=== PATIENT | male | born 1955 | race Caucasian/White ===

== ENCOUNTER 2018-12-21 14:08 | Emergency (ER) | payer MEDICAID ==
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
[2018-12-21 16:04] VITALS: BP 140/89; PULSE 102
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
== END 2018-12-21 16:03 | disposition home or self-care (01) ==
LOC: VM.ED 14:08
DX: S01.21XA Laceration without foreign body of nose, initial encounter (principal); S40.011A Contusion of right shoulder, initial encounter; E11.9 Type 2 diabetes mellitus without complications; J45.909 Unspecified asthma, uncomplicated; K21.9 Gastro-esophageal reflux disease without esophagitis; M19.90 Unspecified osteoarthritis, unspecified site; Z88.0 Allergy status to penicillin; Z79.82 Long term (current) use of aspirin; Z79.899 Other long term (current) drug therapy; Y09 Assault by unspecified means; W10.8XXA Fall (on) (from) other stairs and steps, initial encounter
CPT/HCPCS: 12011; 70450; 70486; 71046; 72125; 73030-RT; 99284-25

== ENCOUNTER 2020-05-24 21:21 | Emergency (ER) | payer MEDICAID ==
[2020-05-24 21:44] VITALS: BP 144/67; PULSE 81
--- NOTE | 2020-05-24 22:14 | EDM.PDOC ---
ED HPI GENERAL MEDICAL PROBLEM - General Chief Complaint: Respiratory Problem Stated Complaint: COUGH AND HEADACHE Time Seen by Provider: 05/24/20 21:40 Source of Information: Reports: Patient History Limitations: Reports: No Limitations - History of Present Illness INITIAL COMMENTS - FREE TEXT/NARRATIVE: Patient presents to the ER with ongoing cough x1 week dull sinus headache and scratchy sore throat that is worse in the morning when he first gets up patient states overall it is getting a lot better than it was he does want to come get checked out. He has no other symptoms at this time he denies any exposure to Covid states he has been doing well eating and drinking normally he has been taking some [id number] cough syrup Hughes's cough drops eating drinking fine along with taking some Tylenol on aspirin. He states his headache is just been over the forehead a dull side is the most its mood is a 2 and today it is 0 He has no other complaints at this time Duration: Day(s): Severity: Mild Improves with: Reports: Medication Worsens with: Reports: None Associated Symptoms: Reports: Cough, Headaches. Denies: Confusion, Chest Pain, cough w sputum, Diaphoresis, Fever/Chills, Loss of Appetite, Nausea/Vomiting, Seizure, Shortness of Breath, Weakness Treatments BLOWER MECHANIC: Reports: Acetaminophen, Aspirin, Other (see below) Other Treatments BLOWER MECHANIC: "Cough Medicine and Aspirin" Generalized Pain Score (Numeric/FACES): 2 - Related Data Allergies Allergy/AdvReac Type Severity Reaction Status Date / Time Penicillins Allergy Severe Anaphylactic Verified 05/24/20 21:36 Shock Home Meds: Home Meds Albuterol Sulfate [Albuterol Sulfate HFA] 1 - 2 puff INH Q4HR PRN 04/24/13 [History] Aspirin [Aspirin EC] 650 mg PO DAILY 04/24/13 [History] Cyanocobalamin (Vitamin B-12) [Vitamin B-12] 1,000 mcg IM Q30D 04/24/13 [History] Folic Acid 2 mg PO DAILY 04/24/13 [History] Omeprazole 20 mg PO DAILY 04/24/13 [History] K-Dur 20 meq PO BID 06/18/13 [History] Triamcinolone Acetonide [Triamcinolone Acetonide 0.1% Crm] 1 applic TOP BID PRN 09/11/13 [History] Amitriptyline [Elavil] 1 tab PO ACBED 12/16/13 [History] Past Medical History Respiratory History: Reports: Asthma Gastrointestinal History: Reports: GERD Other Gastrointestinal History: Weght loss, Abd. pain, Hx colon polyps Musculoskeletal History: Reports: Arthritis Neurological History: Reports: Brain Injury, Headaches, Chronic Psychiatric History: Reports: Developmental Delay, Mood Swings Endocrine/Metabolic History: Reports: Diabetes, Type II Other Endocrine/Metabolic History: diet controlled Hematologic History: Reports: Other (See Below) Other Hematologic History: hereditary hemochromatosis - Past Surgical History GI Surgical History: Reports: Cholecystectomy, Colonoscopy, EGD Oncologic Surgical History: Reports: None Social & Family History - Tobacco Use Tobacco Use Status *Q: Never Tobacco User ED ROS GENERAL - Review of Systems Review Of Systems: See Below Constitutional: Reports: No Symptoms. Denies: Fever, Chills, Malaise, Weakness, Fatigue, Night Sweats, Diaphoresis, Decreased Appetite HEENT: Reports: Nose Pain, Rhinitis, Sinus Problem, Throat Pain. Denies: Contact Lenses, Dental Pain, Eye Discharge, Hearing Loss, Nosebleed, Throat Swelling Respiratory: Reports: Cough. Denies: Shortness of Breath, Wheezing, Pleuritic Chest Pain, Sputum Cardiovascular: Reports: No Symptoms. Denies: Chest Pain, Blood Pressure Problem, Claudication, Dyspnea on Exertion, Lightheadedness, Orthopnea, Palpitations, PND, Syncope Endocrine: Reports: No Symptoms GI/Abdominal: Reports: No Symptoms : Reports: No Symptoms Musculoskeletal: Reports: No Symptoms Skin: Reports: No Symptoms Neurological: Reports: No Symptoms Psychiatric: Reports: No Symptoms Hematologic/Lymphatic: Reports: No Symptoms Immunologic: Reports: No Symptoms ED EXAM, GENERAL - Physical Exam Exam: See Below Exam Limited By: No Limitations General Appearance: Alert, WD/WN, No Apparent Distress, Other (Patient no acute distress alert and oriented x4 follows all commands answers all questions appropriately has normal speech logical thought process) Eye Exam: Bilateral Eye: EOMI, Normal Inspection Ears: Normal External Exam, Normal Canal, Hearing Grossly Normal, Normal TMs Nose: Normal Inspection, Normal Mucosa, No Blood, Other (No sinus tenderness to palpation over the ethmoid and maxillary) Throat/Mouth: Normal Inspection, Normal Lips, Normal Teeth, Normal Gums, Normal Oropharynx, Normal Voice, No Airway Compromise Head: Atraumatic, Normocephalic Neck: Normal Inspection, Supple, Non-Tender, Full Range of Motion Respiratory/Chest: No Respiratory Distress, Lungs Clear, Normal Breath Sounds, No Accessory Muscle Use, Chest Non-Tender Cardiovascular: Normal Peripheral Pulses, Regular Rate, Rhythm, No Edema, No Gallop, No JVD, No Murmur, No Rub GI/Abdominal: Normal Bowel Sounds, Soft, Non-Tender, No Organomegaly, No Distention. No: Guarding, Rigid, Rebound, Tender Extremities: Normal Inspection, Normal Range of Motion, Non-Tender, No Pedal Edema Neurological: Alert, Oriented, CN II-XII Intact, Normal Cognition, Normal Gait, No Motor/Sensory Deficits Psychiatric: Normal Affect, Normal Mood Skin Exam: Warm, Dry, Intact, Normal Color, No Rash Course - Vital Signs Text/Narrative:: Patient is okay with discharge disposition and continued at home medication states he will try to follow-up with his primary doctor in the next 24 to 48 hours and is okay with returning to the emergency room if anything changes Last Recorded V/S: Last Vital Signs Temp 35.6 C L 05/24/20 21:37 Pulse 81 05/24/20 21:37 Resp 16 05/24/20 21:37 BP 144/67 H 05/24/20 21:37 Pulse Ox 97 05/24/20 21:37 - Orders/Labs/Meds Labs: Laboratory Tests 05/24/20 Range/Units 21:36 SARS CoV-2 RNA Rapid MANNY Negative (NEGATIVE) Departure - Departure Time of Disposition: 22:15 Disposition: Home, Self-Care 01 Condition: Good Clinical Impression: Cough in adult patient, Pharyngitis - Discharge Information *PRESCRIPTION DRUG MONITORING PROGRAM REVIEWED*: No *COPY OF PRESCRIPTION DRUG MONITORING REPORT IN PATIENT KAIN: No Instructions: Cough, Adult, [id number] Referrals: Leticia Vickers DO [Primary Care Provider] - Forms: ED Department Discharge Additional Instructions: Return to the emergency room if anything changes or gets worse Follow-up with your primary care provider in the next 24 to 48 hours Make sure you drink plenty of fluids continue take your [id number] medicines as directed Sepsis Event Note (ED) - Evaluation Sepsis Screening Result: No Definite Risk - Focused Exam Vital Signs: Vital Signs Temp Pulse Resp BP Pulse Ox 05/24/20 21:37 35.6 C L 81 16 144/67 H 97 - Problem List & Annotations (1) Cough in adult patient SNOMED Code(s): 34481542 Code(s): R05 - COUGH Status: Acute Current Visit: Yes (2) Pharyngitis SNOMED Code(s): 667883492 Code(s): J02.9 - ACUTE PHARYNGITIS, UNSPECIFIED Status: Acute Current Visit: Yes
== END 2020-05-24 22:22 | disposition home or self-care (01) ==
LOC: VM.ED 21:21
DX: J02.9 Acute pharyngitis, unspecified (principal); J45.909 Unspecified asthma, uncomplicated; K21.9 Gastro-esophageal reflux disease without esophagitis; M19.90 Unspecified osteoarthritis, unspecified site; E11.9 Type 2 diabetes mellitus without complications; Z88.0 Allergy status to penicillin; Z79.82 Long term (current) use of aspirin; Z79.899 Other long term (current) drug therapy; Z20.822 Contact with and (suspected) exposure to COVID-19
CPT/HCPCS: 99283; 99284; U0002

== ENCOUNTER 2020-08-26 03:30 | Emergency (ER) | payer MEDICAID ==
[2020-08-26 04:01] VITALS: BP 125/74; PULSE 81
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
[2020-08-26 04:21] LABS: CHLORIDE,CL 104 mmol/L (98-107); SODIUM,NA 140 mmol/L (136-145)
[2020-08-26 04:23] LABS: ANION GAP 13.3 mmol/L (5-15)
[2020-08-26] MEDS ORDERED: Acetaminophen 500 MG Tab PO ONE (05:03)
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
== END 2020-08-26 05:59 | disposition home or self-care (01) ==
LOC: VM.ED 03:30
DX: S00.83XA Contusion of other part of head, initial encounter (principal); K21.9 Gastro-esophageal reflux disease without esophagitis; J45.909 Unspecified asthma, uncomplicated; E11.9 Type 2 diabetes mellitus without complications; M19.90 Unspecified osteoarthritis, unspecified site; Z79.82 Long term (current) use of aspirin; Z88.0 Allergy status to penicillin; Z79.899 Other long term (current) drug therapy; Y04.0XXA Assault by unarmed brawl or fight, initial encounter
CPT/HCPCS: 36415; 70450; 70486; 72125; 80048; 85025; 99284; 99284-25; A9270-GY

== ENCOUNTER 2020-08-28 11:25 | Emergency (ER) | payer MEDICAID ==
[2020-08-28 11:58] VITALS: BP 123/68; PULSE 80
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
[2020-08-28] MEDS ORDERED: Take Home: Clindamycin HCl 150 MG Cap, 6 Cap Pack PO ONE (13:10)
== END 2020-08-28 13:34 | disposition home or self-care (01) ==
LOC: VM.ED 11:25
DX: K04.7 Periapical abscess without sinus (principal); J45.909 Unspecified asthma, uncomplicated; K21.9 Gastro-esophageal reflux disease without esophagitis; M19.90 Unspecified osteoarthritis, unspecified site; E11.9 Type 2 diabetes mellitus without complications; Z79.899 Other long term (current) drug therapy; Z88.0 Allergy status to penicillin; Z79.82 Long term (current) use of aspirin
CPT/HCPCS: 70486; 99283; A9270

== ENCOUNTER 2020-08-30 05:19 | Emergency (ER) | payer MEDICAID ==
--- NOTE | 2020-08-30 05:56 | EDM.PDOC ---
ED HPI GENERAL MEDICAL PROBLEM - General Chief Complaint: Gastrointestinal Problem Stated Complaint: Rectal Pain / Discharge Time Seen by Provider: 08/30/20 05:30 Source of Information: Reports: Patient History Limitations: Reports: No Limitations - History of Present Illness INITIAL COMMENTS - FREE TEXT/NARRATIVE: tPatient states approximately about an hour or so ago he felt the urge to have a bowel movement and when he did he felt like acid was coming out of his butt . Patient states he has been fine all day eating and drinking normally went to bed with no issues and then this happened. He rated his pain about a 8 out of 10 then but has no pain now. He states he has had this problem maybe a year or so ago lasted 3 to 4 days. And it was due to increased stress and having a lot of acid buildup in his stomach. He has no other complaints at this time he had a TV dinner for supper and has been drinking water with no issues Onset: Sudden Duration: Hour(s): Quality: Reports: Burning Severity: Moderate Improves with: Reports: Other (time ) Context: Reports: Activity Associated Symptoms: Reports: No Other Symptoms - Related Data Allergies Allergy/AdvReac Type Severity Reaction Status Date / Time Penicillins Allergy Severe Anaphylactic Verified 08/30/20 05:28 Shock Home Meds: Home Meds Albuterol Sulfate [Albuterol Sulfate HFA] 1 - 2 puff INH Q4HR PRN 04/24/13 [History] Aspirin [Aspirin EC] 650 mg PO DAILY 04/24/13 [History] Cyanocobalamin (Vitamin B-12) [Vitamin B-12] 1,000 mcg IM Q30D 04/24/13 [Histo ry] Folic Acid 2 mg PO DAILY 04/24/13 [History] Omeprazole 20 mg PO DAILY 04/24/13 [History] K-Dur 20 meq PO BID 06/18/13 [History] Triamcinolone Acetonide [Triamcinolone Acetonide 0.1% Crm] 1 applic TOP BID PRN 09/11/13 [History] Amitriptyline [Elavil] 1 tab PO ACBED 12/16/13 [History] Past Medical History Respiratory History: Reports: Asthma Gastrointestinal History: Reports: GERD Other Gastrointestinal History: Weght loss, Abd. pain, Hx colon polyps Musculoskeletal History: Reports: Arthritis Neurological History: Reports: Brain Injury, Headaches, Chronic Psychiatric History: Reports: Developmental Delay, Mood Swings Endocrine/Metabolic History: Reports: Diabetes, Type II Other Endocrine/Metabolic History: diet controlled Hematologic History: Reports: Other (See Below) Other Hematologic History: hereditary hemochromatosis - Past Surgical History GI Surgical History: Reports: Cholecystectomy, Colonoscopy, EGD Oncologic Surgical History: Reports: None ED ROS GENERAL - Review of Systems Review Of Systems: See Below Constitutional: Reports: No Symptoms HEENT: Reports: No Symptoms Respiratory: Reports: No Symptoms Cardiovascular: Reports: No Symptoms Endocrine: Reports: No Symptoms GI/Abdominal: Reports: Other. Denies: Abdominal Pain, Anorexia, Black Stool, Bloody Stool, Constipation, Diarrhea, Decreased Appetite, Distension, Flatus, Hematemesis, Hematochezia, Melena, Mucous in Stool, Nausea, Stool Incontinence, Vomiting : Reports: No Symptoms Musculoskeletal: Reports: No Symptoms Skin: Reports: No Symptoms Neurological: Reports: No Symptoms. Denies: Confusion, Dizziness, Headache Psychiatric: Reports: No Symptoms Hematologic/Lymphatic: Reports: No Symptoms Immunologic: Reports: No Symptoms ED EXAM, GI/ABD - Physical Exam Exam: See Below Exam Limited By: No Limitations General Appearance: Alert, WD/WN, No Apparent Distress Eyes: Bilateral: Normal Appearance Throat/Mouth: Normal Inspection, Normal Lips, Normal Teeth, Normal Gums, Normal Oropharynx, Normal Voice, No Airway Compromise. No: Perioral Cyanosis Neck: Normal Inspection, Full Range of Motion Respiratory/Chest: No Respiratory Distress, Lungs Clear, Normal Breath Sounds, No Accessory Muscle Use, Chest Non-Tender Cardiovascular: Normal Peripheral Pulses, Regular Rate, Rhythm, No Edema, No Gallop, No JVD, No Murmur, No Rub GI/Abdominal Exam: Normal Bowel Sounds, Soft, Non-Tender, No Organomegaly, No Distention, No Abnormal Bruit. No: Tender (Male) Exam: Normal Inspection Rectal (Males) Exam: Normal Exam, Normal Rectal Tone, Heme - Stool, Other (It was noted upon the rectal exam that the patient had dried diarrhea in his underwear and down his gluteal fold patient also had diffuse mild erythema with mild bilateral gluteal candidiasis). No: Black Stool, Bloody Stool, Heme + Stool Back Exam: Full Range of Motion Extremities: Normal Inspection, Normal Range of Motion, Non-Tender, No Pedal Edema, Normal Capillary Refill Neurological: Alert, Oriented, CN II-XII Intact, Normal Cognition, Normal Gait Psychiatric: Normal Affect, Normal Mood Skin Exam: Warm, Dry, Intact, Normal Color, No Rash Course - Vital Signs Text/Narrative:: Patient had a negative Hemoccult there was no blood noted in the stool on physical exam as well I believe that the irritation may be secondary to the fecal matter stuck to the patient in regards to the candidiasis Patient was instructed to take a shower cleaning self when he returned home patient was given a pair of adult pull-ups here in the ER. Patient was instructed to use mild soap wash daily and to use a topical base ov [id number] antifungal for the next month twice a day patient was instructed to follow-up with primary care provider next 24 to 48 hours pt given calazime skin protectant paste in ER Departure - Departure Time of Disposition: 06:00 Disposition: Home, Self-Care 01 Condition: Good Clinical Impression: Candidiasis of anus - Discharge Information *PRESCRIPTION DRUG MONITORING PROGRAM REVIEWED*: No *COPY OF PRESCRIPTION DRUG MONITORING REPORT IN PATIENT KAIN: No Instructions: Skin Yeast Infection Referrals: Leticia Vickers DO [Primary Care Provider] - Forms: ED Department Discharge Additional Instructions: Make sure you use a mild soap such as Dove to clean the area. Follow-up with your primary care provider in the next 24 to 48 hours. Apply [id number] antifungal cream to the area twice a day for the next month You may also use the cream that you are given in the ER 2-3 times a day as needed If anything changes return to the emergency room - Problem List & Annotations (1) Candidiasis of anus SNOMED Code(s): 78248804 Code(s): B37.89 - OTHER SITES OF CANDIDIASIS Status: Acute Current Visit: Yes
[2020-08-30 06:07] VITALS: BP 133/63; PULSE 77
== END 2020-08-30 06:12 | disposition home or self-care (01) ==
LOC: VM.ED 05:19
DX: B37.49 Other urogenital candidiasis (principal); J45.909 Unspecified asthma, uncomplicated; K21.9 Gastro-esophageal reflux disease without esophagitis; M19.90 Unspecified osteoarthritis, unspecified site; E11.9 Type 2 diabetes mellitus without complications; Z79.899 Other long term (current) drug therapy; Z79.82 Long term (current) use of aspirin; Z88.0 Allergy status to penicillin
CPT/HCPCS: 99283

== ENCOUNTER 2020-09-17 12:29 | Emergency (ER) | payer MEDICAID ==
[2020-09-17] MEDS ORDERED: Sodium Chloride 0.9% 10 ML Syringe FLUSH PRN (12:57)
[2020-09-17] MEDS ORDERED: Lactated Ringers 1,000 ML IV ONE (13:09)
--- NOTE | 2020-09-17 13:22 | EDM.PDOC ---
ED HPI GENERAL MEDICAL PROBLEM - General Stated Complaint: KENDELL Time Seen by Provider: 09/17/20 12:40 Source of Information: Reports: Patient History Limitations: Reports: No Limitations - History of Present Illness INITIAL COMMENTS - FREE TEXT/NARRATIVE: Patient comes emergency department today with complaints of "severe" diarrhea that has been going on for the past 4 days. This patient was placed on clindamycin 300 mg p.o. 3 times daily for a questionable infection in his foot. He did not take it as prescribed. He took 1 tablet a day for about 5 days then he developed diarrhea that he reports is severe and unrelenting. He had 3 days of 1 watery stool per day. Today he had 2 loose stools that were not very large. He has not had any abdominal pain nausea or vomiting. No discomfort other than just prior to a bowel movement he has some cramping. He has had no black or bloody or tarry stools. He has not been traveling anywhere recently. He has discontinued the use of the clindamycin as the litigation manager felt that he did not need to continue it especially since he was not taking it as prescribed and his foot had improved. He has no fever no chills. He denies any surgeries in his abdomen in the past. He has not been exposed anyone else ill. He has not received his Covid vaccine. - Related Data Allergies Allergy/AdvReac Type Severity Reaction Status Date / Time Penicillins Allergy Severe Anaphylactic Verified 08/30/20 05:28 Shock Home Meds: Home Meds Albuterol Sulfate [Albuterol Sulfate HFA] 1 - 2 puff INH Q4HR PRN 04/24/13 [History] Aspirin [Aspirin EC] 650 mg PO DAILY 04/24/13 [History] Cyanocobalamin (Vitamin B-12) [Vitamin B-12] 1,000 mcg IM Q30D 04/24/13 [History] Folic Acid 2 mg PO DAILY 04/24/13 [History] Omeprazole 20 mg PO DAILY 04/24/13 [History] K-Dur 20 meq PO BID 06/18/13 [History] Triamcinolone Acetonide [Triamcinolone Acetonide 0.1% Crm] 1 applic TOP BID PRN 09/11/13 [History] Amitriptyline [Elavil] 1 tab PO ACBED 09/02/14 [History] Past Medical History Respiratory History: Reports: Asthma Gastrointestinal History: Reports: GERD Other Gastrointestinal History: Weght loss, Abd. pain, Hx colon polyps Musculoskeletal History: Reports: Arthritis Neurological History: Reports: Brain Injury, Headaches, Chronic Psychiatric History: Reports: Developmental Delay, Mood Swings Endocrine/Metabolic History: Reports: Diabetes, Type II Other Endocrine/Metabolic History: diet controlled Hematologic History: Reports: Other (See Below) Other Hematologic History: hereditary hemochromatosis - Past Surgical History GI Surgical History: Reports: Cholecystectomy, Colonoscopy, EGD Oncologic Surgical History: Reports: None ED ROS GENERAL - Review of Systems Review Of Systems: Comprehensive ROS is negative, except as noted in HPI. ED EXAM, GI/ABD - Physical Exam Exam: See Below Exam Limited By: No Limitations General Appearance: Alert, WD/WN, No Apparent Distress Eyes: Bilateral: EOMI Ears: Normal External Exam Nose: Normal Inspection, Normal Mucosa, No Blood Throat/Mouth: Normal Inspection Head: Atraumatic, Normocephalic Neck: Normal Inspection, Supple, Non-Tender Respiratory/Chest: No Respiratory Distress, Lungs Clear, Normal Breath Sounds, No Accessory Muscle Use, Chest Non-Tender Cardiovascular: Normal Peripheral Pulses, Regular Rate, Rhythm GI/Abdominal Exam: Normal Bowel Sounds, Soft, Non-Tender, No Distention, Pelvis Stable (Male) Exam: Deferred Rectal (Males) Exam: Deferred Back Exam: Normal Inspection, Full Range of Motion Extremities: Normal Inspection, Normal Range of Motion, Non-Tender, No Pedal Edema, Normal Capillary Refill Neurological: Alert, Oriented, No Motor/Sensory Deficits Psychiatric: Normal Affect, Normal Mood Skin Exam: Warm, Dry, Intact, Normal Color Lymphatic: No Adenopathy Course - Orders/Labs/Meds Orders: Active Orders 24 hr Category Date Time Status CLOSTRIDIUM DIFFICILE TOX RFLX [MREF] Stat Lab 09/17/20 12:57 Ordered STOOL CULTURE [MREF] Stat Lab 09/17/20 14:06 Ordered Sodium Chloride 0.9% [Saline Flush] Med 09/17/20 12:57 Active 10 ml FLUSH ASDIRECTED PRN Isolation [COMM] Stat Oth 09/17/20 12:58 Ordered Peripheral IV Insertion Adult [OM.PC] Stat Oth 09/17/20 12:57 Ordered Medication Orders Sodium Chloride (Sodium Chloride 0.9% 10 Ml Syringe) 10 ml FLUSH ASDIRECTED PRN PRN Reason: Keep Vein Open Labs: Laboratory Tests 09/17/20 09/17/20 09/17/20 Range/Units 13:10 13:10 13:10 WBC 8.3 (4.0-10.0) x10^3/uL RBC 3.78 L (4.5-6.0) x10^6/uL Hgb 13.1 L (14.0-18.0) g/dL Hct 36.6 L (40.0-52.0) % MCV 96.8 H D (78.0-93.0) fL MCH 34.7 H (26.0-32.0) pg MCHC 35.8 (32.0-36.0) g/dL RDW Coeff of Smita 17.4 H (10.0-15.0) % Plt Count 196 (130-400) x10^3/uL Add Manual Diff Yes Neutrophils % (Manual) 82 H (50-80) % Band Neutrophils % 1 (0-6) % Lymphocytes % (Manual) 9 L (25-50) % Monocytes % (Manual) 4 (2-11) % Eosinophils % (Manual) 4 (0-4) % Platelet Estimate Adequate Anisocytosis 1+ slight H Macrocytosis 2+ moderate H Sodium 145 (136-145) mmol/L Potassium 3.3 L (3.5-5.1) mmol/L Chloride 107 (98-107) mmol/L Carbon Dioxide 24 (21-32) mmol/L Anion Gap 17.3 H (5-15) mmol/L BUN 11 (7-18) mg/dL Creatinine 1.0 (0.70-1.30) mg/dL Est Cr Clr Drug Dosing TNP Estimated GFR (MDRD) > 60 Glucose 113 H (70-99) mg/dL Calcium 8.5 (8.5-10.1) mg/dL Corrected Calcium 8.7 (8.5-10.1) mg/dL Magnesium 2.4 (1.8-2.4) mg/dL Total Bilirubin 2.9 H (0.2-1.0) mg/dL AST 25 (15-37) U/L ALT 31 (16-63) U/L Alkaline Phosphatase 65 (46-116) U/L Total Protein 6.7 (6.4-8.2) g/dL Albumin 3.8 (3.4-5.0) g/dL Globulin 2.9 Albumin/Globulin Ratio 1.31 Lipase 57 L (73-393) U/L Meds: Medications Generic Name Dose Route Start Last Admin Trade Name Dirk PRN Reason Stop Dose Admin Sodium Chloride 10 ml 09/17/20 12:57 Sodium Chloride 0.9% 10 Ml Syringe FLUSH ASDIRECTED PRN Keep Vein Open Discontinued Medications Generic Name Dose Route Start Last Admin Trade Name Freten PRN Reason Stop Dose Admin Lactated Ringer's 1,000 mls @ 999 mls/hr 09/17/20 13:09 Ringers, Lactated IV 09/17/20 14:09 ONETIME ONE Potassium Chloride 40 meq 09/17/20 14:10 09/17/20 14:15 Potassium Chloride 20 Meq Tab.Er PO 09/17/20 14:11 40 meq ONETIME ONE Administration - Re-Assessments/Exams Free Text/Narrative Re-Assessment/Exam: IV was established labs are drawn. 1 L LR wide open. Covid screen negative. Laboratory evaluation with a WBC of 8.3, hemoglobin 13.1 platelet 196. CMP with a sodium 145, potassium 3.3, creatinine 1.0 BUN 11 mild elevation of the T bili at 2.9 but the rest of his liver enzymes are negative. Lipase 57 Magnesium 2.4. Patient's laboratory evaluation is rather unremarkable. He has not complained of any nausea or vomiting he has not had any diarrhea in the emergency department. He has really not had a lot of diarrhea either. He has had 1 diarrheal stool for 3 days and then 2 loose stools today. This could be related to the recent antibiotic dosing of the clindamycin. We will have him collect a stool sample at home to ensure that he does not have C. difficile but his presentation does not really appear to be as such with multiple loose watery foul smelling stools. We will have symptomatic treatment at this time and have him bring in a stool sample and will follow accordingly. Discharge instructions as below were explained to the patient. He is comfortable with this plan and his questions answered. Departure - Departure Time of Disposition: 14:03 Disposition: Home, Self-Care 01 Clinical Impression: Diarrhea Qualifiers: Diarrhea type: unspecified type Qualified Code(s): R19.7 - Diarrhea, unspecified - Discharge Information Instructions: Food Choices to Help Relieve Diarrhea, Adult, Diarrhea, Adult, [id number], Mel[place] Diet Referrals: Leticia Vickers, [Primary Care Provider] - Additional Instructions: Make sure and drink plenty of fluids especially electrolyte containing material like Gatorade or Powerade or other like substance over the next few days. No dairy products until symptom free for 48hrs. EXCEPT yogurt with live cultures will actually help with the diarrhea. Simple diet. Nothing fatty spicy or rich until symptoms free. Bring in stool sample when collected to the hospital within 24 hours of the collection. Make sure you are not taking the Clindamycin anymore as previously instructed. Make sure and eat a banana a day to help with your potassium. Return to the ED if new or worsening symptoms. Follow up with PCP in the next 4-6 days if not improving sooner if worse. - My Orders Last 24 Hours: My Active Orders 09/17/20 12:57 CLOSTRIDIUM DIFFICILE TOX RFLX [MREF] Stat Sodium Chloride 0.9% [Saline Flush] 10 ml FLUSH ASDIRECTED PRN Peripheral IV Insertion Adult [OM.PC] Stat 09/17/20 12:58 Isolation [COMM] Stat 09/17/20 14:06 STOOL CULTURE [MREF] Stat - Assessment/Plan Last 24 Hours: My Active Orders 09/17/20 12:57 CLOSTRIDIUM DIFFICILE TOX RFLX [MREF] Stat Sodium Chloride 0.9% [Saline Flush] 10 ml FLUSH ASDIRECTED PRN Peripheral IV Insertion Adult [OM.PC] Stat 09/17/20 12:58 Isolation [COMM] Stat 09/17/20 14:06 STOOL CULTURE [MREF] Stat
[2020-09-17 13:35] LABS: CHLORIDE,CL 107 mmol/L (98-107); SODIUM,NA 145 mmol/L (136-145)
[2020-09-17 13:52] LABS: ANION GAP 17.3 mmol/L (5-15)
[2020-09-17] MEDS ORDERED: Potassium Chloride 20 MEQ Tab.ER PO ONE (14:10)
[2020-09-17 18:43] VITALS: BP 144/89; PULSE 84
== END 2020-09-17 14:20 | disposition home or self-care (01) ==
LOC: VM.ED 12:29
DX: R19.7 Diarrhea, unspecified (principal); K21.9 Gastro-esophageal reflux disease without esophagitis; M19.90 Unspecified osteoarthritis, unspecified site; J45.909 Unspecified asthma, uncomplicated; E11.9 Type 2 diabetes mellitus without complications; Z88.0 Allergy status to penicillin; Z79.82 Long term (current) use of aspirin; Z79.899 Other long term (current) drug therapy
CPT/HCPCS: 36415; 80053; 83690; 83735; 85025; 99284; A9270-GY; J7120

== ENCOUNTER 2020-09-19 13:12 | Emergency (ER) | payer MEDICAID ==
--- NOTE | 2020-09-19 13:44 | EDM.PDOC ---
ED HPI GENERAL MEDICAL PROBLEM - General Stated Complaint: diarrhea Time Seen by Provider: 09/19/20 13:35 Source of Information: Reports: Patient History Limitations: Reports: No Limitations - History of Present Illness INITIAL COMMENTS - FREE TEXT/NARRATIVE: Patient comes emergency department today from home with continued complaints of diarrhea. This patient was seen on Sunday09-17-20 by myself for a 3 to 4-day history of 1 loose stool a day. He had laboratory evaluation at that time which was rather unremarkable with a chronic elevated T bili. He was given IV fluids. He was told to bring in a stool sample for evaluation of his diarrhea. He has not done so although he had 2-3 loose stools yesterday. He had 4 very watery diarrheal stools today to the point where he was unable to control it. He was on a very short course of clindamycin just prior to the development of his diarrhea. He was supposed to take 300 mg 3 times daily although he took 1 tablet a day for just 1 or 2 days and then discontinued it because his kettle firer told him he did not need it any longer. Today he returns the emergency department because he has continued diarrhea. He had 4 bouts of diarrhea today. He has some abdominal cramping when he has a diarrheal stool. He otherwise has no abdominal pain. He has had no nausea no vomiting. No fever no chills. No weakness dizziness lightheadedness syncope. No paresthesias. No chest pain no shortness of breath or difficulty breathing. No pain with urination difficulty urinating hematuria. His stools are very watery. No iam blood. The patient wasn't sure what he has been eating the past few days. He has been drinking water and doing well with that. This patient has had a gallbladder removal in the past. He had pancreatitis due to common bile duct stone. Hyperglycemia. 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 He relates that he isn't able to get to the bathroom quick enough before he is incontinent of diarrhea stools. - Related Data Allergies Allergy/AdvReac Type Severity Reaction Status Date / Time Penicillins Allergy Severe Anaphylactic Verified 09/19/20 13:45 Shock Home Meds: Home Meds Albuterol Sulfate [Albuterol Sulfate HFA] 1 - 2 puff INH Q4HR PRN 04/24/13 [History] Aspirin [Aspirin EC] 650 mg PO DAILY 04/24/13 [History] Cyanocobalamin (Vitamin B-12) [Vitamin B-12] 1,000 mcg IM Q30D 04/24/13 [History] Folic Acid 2 mg PO DAILY 04/24/13 [History] Omeprazole 20 mg PO DAILY 04/24/13 [History] K-Dur 20 meq PO BID 06/18/13 [History] Triamcinolone Acetonide [Triamcinolone Acetonide 0.1% Crm] 1 applic TOP BID PRN 09/11/13 [History] Amitriptyline [Elavil] 1 tab PO ACBED 12/16/13 [History] Past Medical History Respiratory History: Reports: Asthma Gastrointestinal History: Reports: GERD Other Gastrointestinal History: Weght loss, Abd. pain, Hx colon polyps Musculoskeletal History: Reports: Arthritis Neurological History: Reports: Brain Injury, Headaches, Chronic Psychiatric History: Reports: Developmental Delay, Mood Swings Endocrine/Metabolic History: Reports: Diabetes, Type II Other Endocrine/Metabolic History: diet controlled Hematologic History: Reports: Other (See Below) Other Hematologic History: hereditary hemochromatosis - Infectious Disease History Infectious Disease History: Reports: None - Past Surgical History GI Surgical History: Reports: Cholecystectomy, Colonoscopy, EGD Oncologic Surgical History: Reports: None ED ROS GENERAL - Review of Systems Review Of Systems: Comprehensive ROS is negative, except as noted in HPI. ED EXAM, GI/ABD - Physical Exam Exam: See Below Text/Narrative:: He is alert appropriate and in poor hygiene. He really does not share much information and seems like he struggles with understanding communication. Exam Limited By: No Limitations General Appearance: Alert, WD/WN, No Apparent Distress Respiratory/Chest: No Respiratory Distress, Lungs Clear, Normal Breath Sounds, Chest Non-Tender Cardiovascular: Normal Peripheral Pulses, Regular Rate, Rhythm GI/Abdominal Exam: Normal Bowel Sounds, Soft, Non-Tender, No Organomegaly, No Distention (Male) Exam: Deferred Rectal (Males) Exam: Deferred Back Exam: Normal Inspection, Full Range of Motion Extremities: Normal Inspection, Normal Range of Motion, Normal Capillary Refill Neurological: Alert, Oriented, Normal Cognition, No Motor/Sensory Deficits Psychiatric: Normal Affect, Normal Mood Skin Exam: Warm, Dry, Intact, Normal Color Course - Orders/Labs/Meds Orders: Active Orders 24 hr Category Date Time Status ETHANOL BLOOD MEDICAL [CHEM] Stat Lab 09/19/20 14:20 Ordered Labs: Laboratory Tests 09/19/20 09/19/20 09/19/20 Range/Units 13:47 13:47 13:47 WBC 9.6 (4.0-10.0) x10^3/uL RBC 4.05 L (4.5-6.0) x10^6/uL Hgb 14.1 (14.0-18.0) g/dL Hct 38.9 L (40.0-52.0) % MCV 96.0 H (78.0-93.0) fL MCH 34.8 H (26.0-32.0) pg MCHC 36.2 H (32.0-36.0) g/dL RDW Coeff of Smita 17.1 H (10.0-15.0) % Plt Count 209 (130-400) x10^3/uL Neut % (Auto) 83.7 H (50.0-80.0) % Lymph % (Auto) 5.5 L (25.0-50.0) % [place] % (Auto) 8.8 (2.0-11.0) % Eos % (Auto) 1.7 (0.0-4.0) % Baso % (Auto) 0.3 (0.2-1.2) % Sodium 144 (136-145) mmol/L Potassium 3.6 (3.5-5.1) mmol/L Chloride 106 (98-107) mmol/L Carbon Dioxide 23 (21-32) mmol/L Anion Gap 18.6 H (5-15) mmol/L BUN 15 (7-18) mg/dL Creatinine 1.0 (0.70-1.30) mg/dL Est Cr Clr Drug Dosing TNP Estimated GFR (MDRD) > 60 Glucose 126 H (70-99) mg/dL Lactic Acid 0.9 (0.4-2.0) mmol/L Calcium 9.0 (8.5-10.1) mg/dL Corrected Calcium 8.9 (8.5-10.1) mg/dL Magnesium 2.1 (1.8-2.4) mg/dL Total Bilirubin 4.6 H (0.2-1.0) mg/dL AST 24 (15-37) U/L ALT 26 (16-63) U/L Alkaline Phosphatase 64 (46-116) U/L C-Reactive Protein 0.7 (<=0.9) mg/dL Total Protein 7.0 (6.4-8.2) g/dL Albumin 4.1 (3.4-5.0) g/dL Globulin 2.9 Albumin/Globulin Ratio 1.41 Lipase 61 L (73-393) U/L SARS CoV-2 RNA Rapid MANNY (NEGATIVE) 09/19/20 Range/Units 13:48 WBC (4.0-10.0) x10^3/uL RBC (4.5-6.0) x10^6/uL Hgb (14.0-18.0) g/dL Hct (40.0-52.0) % MCV (78.0-93.0) fL MCH (26.0-32.0) pg MCHC (32.0-36.0) g/dL RDW Coeff of Smita (10.0-15.0) % Plt Count (130-400) x10^3/uL Neut % (Auto) (50.0-80.0) % Lymph % (Auto) (25.0-50.0) % [place] % (Auto) (2.0-11.0) % Eos % (Auto) (0.0-4.0) % Baso % (Auto) (0.2-1.2) % Sodium (136-145) mmol/L Potassium (3.5-5.1) mmol/L Chloride (98-107) mmol/L Carbon Dioxide (21-32) mmol/L Anion Gap (5-15) mmol/L BUN (7-18) mg/dL Creatinine (0.70-1.30) mg/dL Est Cr Clr Drug Dosing Estimated GFR (MDRD) Glucose (70-99) mg/dL Lactic Acid (0.4-2.0) mmol/L Calcium (8.5-10.1) mg/dL Corrected Calcium (8.5-10.1) mg/dL Magnesium (1.8-2.4) mg/dL Total Bilirubin (0.2-1.0) mg/dL AST (15-37) U/L ALT (16-63) U/L Alkaline Phosphatase (46-116) U/L C-Reactive Protein (<=0.9) mg/dL Total Protein (6.4-8.2) g/dL Albumin (3.4-5.0) g/dL Globulin Albumin/Globulin Ratio Lipase (73-393) U/L SARS CoV-2 RNA Rapid MANNY Negative (NEGATIVE) - Re-Assessments/Exams Free Text/Narrative Re-Assessment/Exam: 09/19/20 14:07 We will recheck the patients labs again today. It is difficult to determine if the patient needs treatment for infectious colitis as he has not brought in a stool sample. He was on clindamycin for just a few days but only was taking 1 tablet a day so unlikely to cause C Diff. Labs were redrawn. While we were waiting for the labs the patient stated that he just wants to go home and doesn't want to wait for results. I informed him of the risk of not waiting for the labs such as he could of dehdyration acute kidney injury or sepsis. He understands this is alert and appropriate and wants to leave AMA with the understanding of the risk. I did inform him to be seen in the clinic and to bring in a stool sample with his next stool. Also to try some OTC immodium for the time being with his concerns of urge incontinence with diarrhea. I reiterated the importance of him returning a stool sample. We did try to get him the collection stuff once again although he stated that he had some at home already. He is unable to give a stool sample while in the ED> 09/19/20 14:29 Departure - Departure Time of Disposition: 14:24 Disposition: Against Medical Advice 07 Clinical Impression: Left against medical advice Diarrhea Qualifiers: Diarrhea type: unspecified type Qualified Code(s): R19.7 - Diarrhea, unspecified - Discharge Information Forms: Refusal of Care AMA - My Orders Last 24 Hours: My Active Orders 09/19/20 14:20 ETHANOL BLOOD MEDICAL [CHEM] Stat - Assessment/Plan Last 24 Hours: My Active Orders 09/19/20 14:20 ETHANOL BLOOD MEDICAL [CHEM] Stat
[2020-09-19 14:12] LABS: CHLORIDE,CL 106 mmol/L (98-107); SODIUM,NA 144 mmol/L (136-145)
[2020-09-19 14:16] LABS: ANION GAP 18.6 mmol/L (5-15)
[2020-09-19 15:35] VITALS: BP 103/64; PULSE 88
== END 2020-09-19 14:24 | disposition left against medical advice (07) ==
LOC: VM.ED 13:12 → SUPCPDRO 13:12 → VM.ED 14:24
DX: R19.7 Diarrhea, unspecified (principal); K21.9 Gastro-esophageal reflux disease without esophagitis; E11.9 Type 2 diabetes mellitus without complications; Z88.0 Allergy status to penicillin; Z79.82 Long term (current) use of aspirin; Z79.899 Other long term (current) drug therapy; Z20.822 Contact with and (suspected) exposure to COVID-19; Z53.8 Procedure and treatment not carried out for other reasons
CPT/HCPCS: 36415; 80053; 80307; 83605; 83690; 83735; 85025; 86140; 99284; U0002

== ENCOUNTER 2021-08-01 09:00 | Day surgery (SDC) | payer MEDICARE, MEDICAID ==
[~2021-08-01 09:00] MED LIST: Lactated Ringers 1,000 ML IV SCH
[2021-08-01] MEDS ORDERED: Propofol 200 MG/20 ML SDV ONE ×2 (09:32→10:56)
[2021-08-01] MEDS ORDERED: fentaNYL 100 MCG/2 ML SDV ONE (09:32)
[2021-08-01 11:26] VITALS: BP 95/64; PULSE 67
== END 2021-08-01 11:55 | disposition home or self-care (01) ==
LOC: VM.SDS 09:00
PROVIDERS: ATTEND Surgery
DX: Z12.11 Encounter for screening for malignant neoplasm of colon (principal); K21.9 Gastro-esophageal reflux disease without esophagitis; E55.9 Vitamin D deficiency, unspecified; E53.8 Deficiency of other specified B group vitamins; J45.20 Mild intermittent asthma, uncomplicated; F41.1 Generalized anxiety disorder; G30.1 Alzheimer's disease with late onset; F02.81 Dementia in other diseases classified elsewhere, unspecified severity, with behavioral disturbance; D58.0 Hereditary spherocytosis; D63.8 Anemia in other chronic diseases classified elsewhere; E66.9 Obesity, unspecified; M10.9 Gout, unspecified; Z88.0 Allergy status to penicillin; Z79.82 Long term (current) use of aspirin; Z79.899 Other long term (current) drug therapy; Z68.28 Body mass index [BMI] 28.0-28.9, adult; Z86.010 Personal history of colon polyps; Z87.891 Personal history of nicotine dependence
CPT/HCPCS: 00811; J2704; J3010; J7120

== ENCOUNTER 2023-03-11 18:39 | Emergency (ER) | payer MEDICARE, MEDICAID ==
[2023-03-11 19:13] LABS: HEMATOCRIT 34.7 % (40.0-52.0); HEMOGLOBIN 12.2 g/dL (14.0-18.0); MEAN CORPUSCULAR HEMOGLOBIN 32.3 pg (26.0-32.0); MEAN CORPUSCULAR HGB CONC 35.2 g/dL (32.0-36.0); MEAN CORPUSCULAR VOLUME 91.8 fL (78.0-93.0); PLATELET COUNT,PLT 168 x10^3/uL (130-400); RED BLOOD CELL COUNT 3.78 x10^6/uL (4.5-6.0); WHITE BLOOD CELL COUNT,WBC 9.7 x10^3/uL (4.0-10.0)
[2023-03-11 19:29] LABS: BAND PERCENT MAN 1 % (0-6); BASOPHILS ABSOLUTE MAN 0.1 x10^3/uL (0.0-0.2); BASOPHILS PERCENT MAN 1 % (0-1); EOSINOPHILS ABSOLUTE MAN 0.6 x10^3/uL (0.0-0.5); EOSINOPHILS PERCENT MAN 6 % (0-4); LYMPHOCYTES ABSOLUTE MAN 1.9 x10^3/uL (1.0-4.8); LYMPHOCYTES PERCENT MAN 13 % (25-50); MONOCYTES ABSOLUTE MAN 0.6 x10^3/uL (0.0-0.8); MONOCYTES PERCENT MAN 6 % (2-11); NEUTROPHILS ABSOLUTE MAN 6.5 x10^3/uL (1.8-7.7); NRBC MANUAL 2 /100WBC (0-5); PLATELET COUNT ESTIMATE ADEQUATE; POLYCHROMASIA 1+ SLIGHT; SEG NEUTROPHILS PERCENT MAN 66 % (50-80)
[2023-03-11 19:31] LABS: CORONAVIRUS COVID-19 NAA NEGATIVE (NEGATIVE); INFLUENZA A NAA NEGATIVE (NEGATIVE); INFLUENZA B NAA NEGATIVE (NEGATIVE); RESPIRATORY SYNCYTIAL VIR NAA NEGATIVE (NEGATIVE)
[2023-03-11 19:36] LABS: ALANINE AMINOTRANSFERASE,ALT 83 U/L (16-63); ALBUMIN 3.4 g/dL (3.4-5.0); ALKALINE PHOSPHATASE 93 U/L (46-116); ASPARTATE AMNIOTRANSFERASE,AST 54 U/L (15-37); BILIRUBIN TOTAL 2.6 mg/dL (0.2-1.0); BLOOD UREA NITROGEN,BUN 17 mg/dL (7-18); C-REACTIVE PROTEIN 0.93 mg/dL (<=0.50); CALCIUM 8.6 mg/dL (8.5-10.1); CARBON DIOXIDE,CO2 28 mmol/L (21-32); CHLORIDE,CL 106 mmol/L (98-107); CREATININE 1.1 mg/dL (0.70-1.30); GLUCOSE RANDOM 192 mg/dL (70-99); POTASSIUM,K 3.6 mmol/L (3.5-5.1); PROTEIN TOTAL,TP 6.5 g/dL (6.4-8.2); SODIUM,NA 141 mmol/L (136-145)
[2023-03-11 19:37] LABS: ANION GAP 10.6 mmol/L (5-15); ESTIMATED GFR 73 mL/min (>=60)
[2023-03-11] MEDS: methylPREDNISolone Sodium Succinate 125 MG/2 ML SDV IVPUSH ONE (19:48)
[2023-03-11 22:54] VITALS: PULSE 82
[2023-03-11 23:28] VITALS: BP 114/63
== END 2023-03-11 19:58 | disposition home or self-care (01) ==
LOC: VM.ED 18:39
DX: J40 Bronchitis, not specified as acute or chronic (principal); K21.9 Gastro-esophageal reflux disease without esophagitis; M19.90 Unspecified osteoarthritis, unspecified site; E11.9 Type 2 diabetes mellitus without complications; Z90.49 Acquired absence of other specified parts of digestive tract; Z79.899 Other long term (current) drug therapy; Z88.0 Allergy status to penicillin; Z20.822 Contact with and (suspected) exposure to COVID-19
CPT/HCPCS: 0241U; 36415; 71046; 80053; 84484; 85025; 86140; 96374; 99284; J2930